=== PATIENT | female | born 1980 | race Caucasian/White ===

== ENCOUNTER 2022-03-27 12:18 | Emergency (ER) | payer OTHER ==
[2022-03-27 12:45] VITALS: BP 126/73; PULSE 92; TEMP 98.3; BMI 30.5
[2022-03-27 13:22] LABS: HEMATOCRIT 36.8 % (32.4-45.2); HEMOGLOBIN 12.9 G/dL (10.7-15.3); MCH 30.4 pg (25.7-33.7); MEAN CELL VOLUME 86.8 fl (80-96); MEAN PLT VOLUME 9.3 fl (7.5-11.1); PLATELET COUNT 303.9 10^3/uL (134-434); RBC 4.24 10^6/uL (3.60-5.2); RDW 15.2 % (11.6-15.6); WHITE BLOOD COUNT 5.9 10^3/uL (4.0-10.8)
[2022-03-27 13:25] LABS: ALBUMIN 3.8 g/dl (3.4-5.0); BILIRUBIN,TOTAL 0.8 mg/dl (0.2-1); CALCIUM 9.1 mg/dl (8.5-10); CREATININE 0.6 mg/dl (0.55-1.3)
[2022-03-27 13:33] LABS: EPITHELIAL CELLS FEW /hpf
== END 2022-03-27 13:50 | disposition home or self-care (01) ==
LOC: FER 12:18
DX: R22.43 Localized swelling, mass and lump, lower limb, bilateral (principal)
CPT/HCPCS: 36415; 71046-TC-FY; 80053; 81003; 81015; 85027; 93005; 99284-25